=== PATIENT | male | born 1945 | race Caucasian/White ===

== ENCOUNTER 2019-08-03 06:00 | Outpatient (RCR) | payer MEDICARE, OTHER, SELFPAY | END 2019-09-02 00:01 | LOC: MPT 06:00 | PROVIDERS: Family Provider Family Medicine; Visit Provider Family Medicine | DX: R32 Unspecified urinary incontinence (principal) | CPT/HCPCS: 97530 ==

== ENCOUNTER 2019-09-03 13:44 | Outpatient (RCR) | payer MEDICARE, OTHER, SELFPAY | END 2019-10-03 23:59 | disposition home or self-care (01) | LOC: SPT 13:44 | PROVIDERS: Family Provider Family Medicine; PCP Family Medicine; Visit Provider Family Medicine | DX: R32 Unspecified urinary incontinence (principal) ==

== ENCOUNTER 2020-04-22 14:04 | Outpatient (CLI) | payer MEDICARE, OTHER, SELFPAY ==
--- NOTE | 2020-04-22 14:15 | USCV_ITS ---
PriteshJamaal Age: 74 Gender: M : 1945 Exam Date: 04/22/2020 14:33 Ordering Phys: Suzan Munoz MD Technologist: Peg Santoro Exam Location: [facility] [place] Indication: PAIN RT FOOT HISTORY: PAIN ON SIDE OF FOOT X 1 WEEK. NO TRAUMA PROCEDURES: Venous duplex imaging was performed in only the right lower extremity. The following venous structures were evaluated: common femoral vein, profunda vein, proximal portion of the greater saphenous vein, superficial femoral vein, and the popliteal vein. In addition, the posterior tibial and peroneal trunk were evaluated. FINDINGS: Normal 2-D Doppler and augmentation and compressibility throughout the lower extremity venous structures. Additional imaging through the proximal calf veins also reveals no thrombus. Limited evaluation of the greater saphenous vein is patent with no thrombus. CONCLUSIONS No DVT right lower extremity. Dr. Belle Gray DO (Electronically Signed) Final Date: 22 April 2020 15:53 S
--- NOTE | 2020-04-22 14:15 | XR_ITS ---
WS: [id number] EXAM: RIGHT FOOT: 3 VIEWS DATE OF EXAMINATION: 04/22/2020, 1428 hours COMPARISON: None. HISTORY: 74 years old with foot pain. FINDINGS: Bone density is decreased. Minimal hallux valgus deformity of the first ray is seen with slight arthr itis first metatarsal phalangeal joint. No fracture, lytic or blastic process. Tiny heel spur plantar aponeurosis insertion. Minimal arterial atherosclerotic plaque changes. No soft tissue abnormality s een. XR/XR foot RT min 3V* [id number] IMPRESSION: Decreased bone density. Minimal changes of arthritis as described. No acute abn ormality.
== END 2020-04-22 14:05 | disposition home or self-care (01) ==
LOC: RAD 14:09
PROVIDERS: PCP Family Medicine; Visit Provider Family Medicine
DX: M79.671 Pain in right foot (principal)
CPT/HCPCS: 73630; 93971

== ENCOUNTER 2022-06-21 15:12 | Outpatient (CLI) | payer MEDICARE, OTHER, SELFPAY ==
--- NOTE | 2022-06-21 15:29 | XRR_ITS ---
PROCEDURE INFORMATION: Exam: XR Left Hip Exam date and time: 06/21/2022 3:46 PM Age: 76 years old Clinical indication: Low back pain and left hip pain. Bone metastasis. History of prostate cancer. Left hip pain. TECHNIQUE: Imaging protocol: Radiologic exam of the Left hip. Views: 2 or 3 views hip with pelvis when performed. COMPARISON: CR XR lumbar spine 2-3V* [id number] 07/19/2017 11:34 AM FINDINGS: Bones/joints: There are sclerotic lesions in the intertrochanteric and subtrochanteric femur that are likely metastatic. Possible metastatic lesions in the right iliac wing and left superior pubic ramus. 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 The sacroiliac joints are grossly symmetric. The sacrum is partially obscured by overlying bowel gas/stool. No acute fracture, dislocation or subluxation is identified. Soft tissues: No gross soft tissue swelling. XR/XR hip LT 2-3V wo/w pel* [id number] IMPRESSION: 1. Sclerotic lesions in the intertrochanteric and subtrochanteric femur that are likely metastatic. 2. Possible metastatic lesions in the right iliac wing and left superior pubic ramus. 3. 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 4. No acute fracture is seen.
--- NOTE | 2022-06-21 15:30 | XRR_ITS ---
PROCEDURE INFORMATION: Exam: XR Lumbosacral Spine Exam date and time: 06/21/2022 3:46 PM Age: 76 years old Clinical indication: Low back pain. Left hip pain. Bone metastasis. Low back pain. History of prostate cancer. TECHNIQUE: Imaging protocol: Radiologic exam of the lumbosacral spine. Views: 2 or 3 views. COMPARISON: CR XR lumbar spine 2-3V* [id number] 07/19/2017 11:34 AM FINDINGS: Tubes, catheters and devices: Bilateral percutaneous nephrostomy tubes are noted. Bones/joints: There is a mild leftward curvature of the lumbar spine. Grade 1 anterolisthesis of L4. Grade 1 retrolistheses L2 and L1. Aaio-ux-seljblnm degenerative disc disease in the lumbar spine most prominent at L3-L4. No acute fracture is identified. Small sclerotic lesion in the L1 vertebral body is likely metastatic. Soft tissues: No gross soft tissue swelling. XR/XR lumbar spine 2-3V* [id number] IMPRESSION: 1. Small sclerotic lesion in the L1 vertebral body is likely metastatic. 2. Dlro-gr-dgrntldv degenerative disc disease in the lumbar spine most prominent at L3-L4. 3. No acute fracture is identified. 4. Consider MRI to further assess if clinically warranted.
== END 2022-06-21 15:13 | disposition home or self-care (01) ==
LOC: RAD 15:16
PROVIDERS: PCP Family Medicine; Visit Provider Family Medicine
DX: C79.51 Secondary malignant neoplasm of bone (principal); M54.50 Low back pain, unspecified; M51.36 Other intervertebral disc degeneration, lumbar region; M16.12 Unilateral primary osteoarthritis, left hip
CPT/HCPCS: 72100; 73502

== ENCOUNTER 2022-10-12 10:28 | Oncology outpatient (recurring) (ONCR) | payer MEDICARE, OTHER, SELFPAY ==
--- NOTE | 2022-10-12 12:35 | N.ONRAD NP_ITS ---
Radiation Oncology Consultation Patient Name: Jamaal Jonas Date of : 1945 Date of Service: 10/12/2022 Attending Physician: Chano Hobson M.D. Sukumar Jonas was seen in consultation this afternoon for consideration of palliative radiotherapy in the management of metastatic prostate cancer. The patient was diagnosed in 2012 with an adenocarcinoma of the prostate gland (David score 4+5). External beam radiotherapy was administered to a cumulative dose of 75.6 Gy. A biochemical failure was noted in 2016. Prostate biopsy was positive and cryoablation was performed. A PSMA scan (independently reviewed in [facility]) obtained in November 2021 identified hypermetabolic lymphadenopathy within the left neck, mediastinum, retroperitoneum, and proximal iliac region. Numerous lesions were noted throughout the axial skeleton. Androgen deprivation therapy with abiraterone was prescribed. Xgeva was prescribed for osseous metastases. Enzalutamide replaced abiraterone in consideration of cost to the patient. Palliative pelvic radiotherapy was delivered in July 2022 (the medical records were requested from the outside hospital and reviewed in [facility]). During a recent appointment at [facility], he described worsening left hip pain. He was referred for consideration of palliative radiotherapy. I discussed with Mr. Jonas the role for palliative radiotherapy. I will request a bone scan before initiating treatment. I would recommend a single fraction course of re-irradiation in accordance to the prospective study by Jannet et al. A planning CT scan will be acquired prior to beginning treatment to delineate the clinical target volumes. The potential toxicities of pelvic radiotherapy were reviewed. The patient has verbalized understanding would like to proceed as recommended. Signed by: Dr. Chano Hobson 10/12/2022 12:34:28 PM
== END 2022-10-31 23:59 | disposition home or self-care (01) ==
PROVIDERS: PCP Family Medicine; Visit Provider Radiology Radiation Oncology
DX: C79.51 Secondary malignant neoplasm of bone (principal); C61 Malignant neoplasm of prostate
CPT/HCPCS: 99205

== ENCOUNTER 2022-11-06 07:53 | Outpatient (CLI) | payer MEDICARE, OTHER, SELFPAY ==
--- NOTE | 2022-11-06 08:00 | NM_ITS ---
WS: [id number] NUCLEAR MEDICINE BONE SCAN Radiopharmaceutical: 24.1 Tc-99m MDP mCi IV Injection site: RIGHT antecubital Postinjection imaging delay: 1 hr CLINICAL INFORMATION: Pain in left hip COMPARISON: Outside PET/CT November 15, 2021 FINDINGS: Bone lesions: Osseous metastasis improved since the prior PET/CT November 15, 2021. Residual punctate fo cus of activity involving the RIGHT anterior pelvis near the SI joint and LEFT inferior pubic ramus. 2 small punctate foci of uptake within the lower thoracic and upper lumbar spine nonspecific but may be degenerative. No focal areas of uptake within the LEFT hip. Soft tissue contours: Normal. Kidneys: Bilateral nephrostomy tubes. Other findings: Urinary contamination in the groin. NM/NM bone scan whole body* [id number] IMPRESSION: Osseous metastasis is improved since the prior PET/CT November 15, 2021
== END 2022-11-06 07:54 | disposition home or self-care (01) ==
PROVIDERS: PCP Family Medicine; Visit Provider Radiology Radiation Oncology
DX: C79.51 Secondary malignant neoplasm of bone (principal)
CPT/HCPCS: 78306; A9561

== ENCOUNTER 2022-11-09 14:20 | Oncology outpatient (recurring) (ONCR) | payer MEDICARE, OTHER, SELFPAY ==
--- NOTE | 2022-11-09 14:53 | ONCRAD EPV_ITS ---
Radiation Oncology Follow-Up Note Patient Name: Jamaal Jonas Date of : 1945 Date of Service: 11/09/2022 Attending Physician: Chano Hobson M.D. Sukumar Jonas was scheduled to review a recent bone scan. He was diagnosed in 2012 with an adenocarcinoma of the prostate gland ([place] score 4+5). External beam radiotherapy was administered to a cumulative dose of 75.6 Gy. A biochemical failure was noted in 2016. Prostate biopsy was positive and cryoablation was performed. A PSMA scan obtained in November 2021 identified hypermetabolic lymphadenopathy within the left neck, mediastinum, retroperitoneum, and proximal iliac region. Numerous lesions were noted throughout the axial skeleton. Androgen deprivation therapy with abiraterone was prescribed. Xgeva was prescribed for osseous metastases. Enzalutamide replaced abiraterone in consideration of cost to the patient. Palliative pelvic radiotherapy was delivered to the left hip in July 2022 (the medical records were requested from the outside hospital and reviewed in [facility]). During a recent appointment at [facility] in [place], [place], he described worsening left hip pain. A bone scan ordered on November 06, 2022 demonstrated improvement in the osseous metastases in comparison to a previous PET scan in November of 2021. A residual focus was present in the right anterior pelvis near the SI joint, left inferior pubic ramus, lower thoracic spine, and upper lumbar spine. Re-irradiation to the left hip would not be warranted in consideration of the response to treatment demonstrated by recent imaging. He will continue to follow-up with his medical oncologist. Signed by: Chano Hobson 11/09/2022 2:52:21 PM
== END 2022-12-01 23:59 | disposition home or self-care (01) ==
PROVIDERS: PCP Family Medicine; Visit Provider Radiology Radiation Oncology
DX: C79.51 Secondary malignant neoplasm of bone (principal); C61 Malignant neoplasm of prostate; Z79.52 Long term (current) use of systemic steroids; Z79.890 Hormone replacement therapy
CPT/HCPCS: 99213